=== PATIENT | male | born 1955 | race Caucasian/White ===

== ENCOUNTER 2021-08-17 17:11 | Emergency (ER) | payer OTHER ==
[~2021-08-17] VITALS: Ht 170.2 cm; Wt 61.2 kg
--- NOTE | 2021-08-17 18:00 | NUR ---
at bedside for assessment
--- NOTE | 2021-08-17 18:10 | NUR ---
Patient complaints of a anxiety and chest pain
[2021-08-17 18:15] LABS: HEMATOCRIT 40.1 % (36.7-47.1); MEAN CORPUSCULAR HEMOGLOBIN 27.7 uug (23.8-33.4); MEAN CORPUSCULAR VOLUME 83.3 fL (73.0-96.2); PLATELET COUNT (AUTO) 303 K/uL (152-348)
[2021-08-17 18:18] LABS: CREATININE 0.8 mg/dL (0.6-1.3); POTASSIUM 4.1 mmol/L (3.5-5.1)
[2021-08-17 18:24] LABS: BILIRUBIN,DIRECT 0.2 mg/dL (0.0-0.2); BILIRUBIN,TOTAL 0.7 mg/dL (0.2-1.0); TOTAL PROTEIN, SERUM 8.9 g/dL (6.4-8.2)
[2021-08-17] MEDS ORDERED: MORPHINE SULFATE 4 MG/1 ML DISP.SYRIN IV ONE (18:30)
[2021-08-17] MEDS ORDERED: ASPIRIN 325 MG TABLET PO ONE (18:30)
[2021-08-17] MEDS ORDERED: NITROGLYCERIN 0.4 MG/TAB BOTTLE SL ONE ×2 (18:30→18:38)
[2021-08-17] MEDS ORDERED: ASPIRIN 325 MG TABLET ONE (18:38)
[2021-08-17] MEDS ORDERED: MORPHINE SULFATE 4 MG/1 ML DISP.SYRIN ONE (18:38)
[2021-08-17] MEDS ORDERED: MELA3TAB41 PO (18:57)
[2021-08-17] MEDS ORDERED: [UNRECOGNIZED DRUG - OTHER] (18:57)
[2021-08-17] MEDS ORDERED: BISM262O PO (18:57)
[2021-08-17] MEDS ORDERED: MULT-594 PO (18:57)
[2021-08-17] MEDS ORDERED: ACET-2154 PO (18:57)
[2021-08-17] MEDS ORDERED: BUPR8TAB4 (18:57)
[2021-08-17] MEDS ORDERED: MAG355OR18 PO (18:57)
[2021-08-17] MEDS ORDERED: FEXO180T94 PO (18:57)
[2021-08-17] MEDS ORDERED: ONDA4TAB5 PO (18:57)
[2021-08-17] MEDS ORDERED: CHOL4PAC5 PO (18:57)
[2021-08-17] MEDS ORDERED: POTA10CA43 PO (18:57)
[2021-08-17] MEDS ORDERED: [UNRECOGNIZED DRUG - CODE] (18:57)
[2021-08-17] MEDS ORDERED: DICY20TA11 PO (18:57)
[2021-08-17] MEDS ORDERED: FURO40TA5 PO (18:57)
[2021-08-17] MEDS ORDERED: DOCU100T2 PO (18:57)
[2021-08-17] MEDS ORDERED: MAGN400O6 PO (18:57)
[2021-08-17] MEDS ORDERED: CARV3.122 PO (18:57)
[2021-08-17] MEDS ORDERED: NALO4SPR NS (18:57)
[2021-08-17] MEDS ORDERED: DEXT15SY3 PO (18:57)
[2021-08-17 19:35] LABS: *BILIRUBIN,URIN NEGATIVE (NEGATIVE); *BLOOD, URINE NEGATIVE (NEGATIVE); *CLARITY,URINE CLEAR (CLEAR); *COLOR,URINE YELLOW (YELLOW); *KETONES,URINE 3+ (NEGATIVE); *UROBILINOGEN,URINE 0.2 E.U./dl (NORMAL); LEUKOCYTE ESTERASE ,URINE NEGATIVE (NEGATIVE); NITRITE, URINE NEGATIVE (NEGATIVE); PH,URINE 5.5 (5.0-8.0); UGLUCOSE NEGATIVE (NEGATIVE)
[2021-08-17] MEDS ORDERED: IV NORMAL SALINE 250 ML IV ONE (19:40)
[2021-08-17] MEDS ORDERED: IOHEXOL 350 100 ML INFUS..BTL ONE (19:40)
[2021-08-17] MEDS ORDERED: SWABABLE VALVE TRANSFER SET EA MC ONE (19:40)
[2021-08-17 19:45] LABS: BACTERIA,URINE NONE SEEN /HPF (NONE SEEN); RBC,URINE 0-3 /HPF (0-3); WBC,URINE 0-3 /HPF (0-3)
[2021-08-17 19:46] LABS: SQUAMOUS EPITHELIAL CELL,UR MODERATE /HPF (NONE SEEN)
--- NOTE | 2021-08-17 19:55 | NUR ---
Pt refusing CTA chest.
[2021-08-17] MEDS ORDERED: LORAZEPAM 0.5 MG TABLET PO ONE (20:30)
[2021-08-17] MEDS ORDERED: LORAZEPAM 1 MG TABLET ONE (20:49)
--- NOTE | 2021-08-17 23:00 | NUR ---
IV removed. Catheter intact and site benign. Pressure and 4x4 gauze applied to site. No bleeding noted.
--- NOTE | 2021-08-17 23:00 | NUR ---
Patient discharged to [facility] in stable condition. Written and verbal after care instructions given. Patient verbalizes understanding of instructions. Stressed follow up or return to ER for worsening s/s.
[2021-08-17 23:19] VITALS: BP 145/82
== END 2021-08-17 23:20 ==
LOC: ER 17:11
DX: R07.9 Chest pain, unspecified (principal); I25.2 Old myocardial infarction; Z95.0 Presence of cardiac pacemaker; F11.20 Opioid dependence, uncomplicated; D72.829 Elevated white blood cell count, unspecified; R79.1 Abnormal coagulation profile; R00.0 Tachycardia, unspecified
CPT/HCPCS: 36415; 71045; 71275; 80048; 80076; 81001; 83690; 83880; 84484; 85025; 85379; 93005; 96374; 99285; J2270; Q9967; 70030-TC; A4663; J7050

== ENCOUNTER 2021-08-26 22:20 | Inpatient (IN) | payer OTHER ==
[~2021-08-26] VITALS: Ht 172.7 cm; Wt 68.0 kg
[~2021-08-26 22:20] MED LIST: ACET-2154 PO; BISM262O PO; BUPR8TAB4; CARV3.122 PO; CHOL4PAC5 PO; DEXT15SY3 PO; DICY20TA11 PO; DOCU100T2 PO; FEXO180T94 PO; FURO40TA5 PO; MAG355OR18 PO; MAGN400O6 PO; MELA3TAB41 PO; MULT-594 PO; NALO4SPR NS; ONDA4TAB5 PO; POTA10CA43 PO; [UNRECOGNIZED DRUG - CODE]; [UNRECOGNIZED DRUG - OTHER]
[2021-08-26] MEDS ORDERED: ASPIRIN 81 MG TAB.CHEW PO ONE ×2 (22:45→23:30)
[2021-08-26] MEDS ORDERED: CEFTRIAXONE 1 G in IV DEXTROSE 5% 50 ML IV ONE (22:45)
[2021-08-26] MEDS ORDERED: LORAZEPAM 2 MG/1 ML VIAL IV ONE (22:45)
--- NOTE | 2021-08-26 22:50 | NUR ---
Xray at bedside.
[2021-08-26] MEDS ORDERED: ASPI81TA31 PO (22:53)
[2021-08-26] MEDS ORDERED: BUPR1FIL3 SUBCUT/PO (22:53)
[2021-08-26] MEDS ORDERED: CARVEDILOL PO (22:53)
[2021-08-26] MEDS ORDERED: SERT50TA14 PO (22:54)
--- NOTE | 2021-08-26 22:54 | NUR ---
Patient is AOx4 but can not recall the exact dosages of his home medication.
[2021-08-26 22:55] LABS: HEMATOCRIT 36.8 % (36.7-47.1); MEAN CORPUSCULAR HEMOGLOBIN 27.9 uug (23.8-33.4); MEAN CORPUSCULAR VOLUME 85.6 fL (73.0-96.2); PLATELET COUNT (AUTO) 190 K/uL (152-348)
[2021-08-26] MEDS ORDERED: LORAZEPAM 2 MG/1 ML VIAL ONE (22:57)
[2021-08-26] MEDS ORDERED: ASPIRIN 81 MG TAB.CHEW ONE ×2 (22:58→23:47)
[2021-08-26 22:59] LABS: CREATININE 0.9 mg/dL (0.6-1.3); POTASSIUM 4.4 mmol/L (3.5-5.1)
[2021-08-26] MEDS ORDERED: CEFTRIAXONE /D5W 50ML IVPB **ER PYXIS IV ONE (22:59)
[2021-08-26 23:11] LABS: BILIRUBIN,DIRECT 0.1 mg/dL (0.0-0.2); BILIRUBIN,TOTAL 0.5 mg/dL (0.2-1.0); TOTAL PROTEIN, SERUM 7.4 g/dL (6.4-8.2)
[2021-08-26] MEDS ORDERED: levoFLOXacin 750 MG/D5W 150 ML PIGGYBACK IV ONE (23:30)
[2021-08-26] MEDS ORDERED: ENOXAPARIN SODIUM 60 MG/0.6 ML DISP.SYRIN SQ ONE ×2 (23:30→23:47)
[2021-08-26] MEDS ORDERED: NITROGLYCERIN OINT 1 GM PACKET TP ONE ×2 (23:30→23:47)
[2021-08-26] MEDS ORDERED: FUROSEMIDE 20 MG/2 ML VIAL IV ONE (23:30)
--- NOTE | 2021-08-26 23:31 | NUR ---
Ultrasound at bedside.
[2021-08-26] MEDS ORDERED: levoFLOXacin 750MG/D5W 150 ML IV ONE (23:47)
--- NOTE | 2021-08-26 23:47 | NUR ---
Dr. Mera speaking with Dr. Nova (laser beam machine operator).
[2021-08-27] MEDS ORDERED: IOHEXOL 350 100 ML INFUS..BTL ONE
[2021-08-27] MEDS ORDERED: SWABABLE VALVE TRANSFER SET EA MC ONE
[2021-08-27] MEDS ORDERED: IV NORMAL SALINE 250 ML IV ONE
[2021-08-27] MEDS ORDERED: FUROSEMIDE 20 MG/2 ML VIAL ONE (00:02)
--- NOTE | 2021-08-27 00:06 | NUR ---
Called [facility] to page Nacho Kapoor DNP.
--- NOTE | 2021-08-27 00:15 | NUR ---
Back from CT.
--- NOTE | 2021-08-27 00:18 | NUR ---
Pt back to ER from CT.
[2021-08-27 00:31] LABS: *BILIRUBIN,URIN NEGATIVE (NEGATIVE); *BLOOD, URINE NEGATIVE (NEGATIVE); *CLARITY,URINE CLEAR (CLEAR); *COLOR,URINE YELLOW (YELLOW); *KETONES,URINE NEGATIVE (NEGATIVE); *UROBILINOGEN,URINE 0.2 E.U./dl (NORMAL); LEUKOCYTE ESTERASE ,URINE NEGATIVE (NEGATIVE); NITRITE, URINE NEGATIVE (NEGATIVE); PH,URINE 5.5 (5.0-8.0); UGLUCOSE NEGATIVE (NEGATIVE)
--- NOTE | 2021-08-27 00:32 | NUR ---
Dr. Mera on panel call with Nacho Kapoor DNP.
[2021-08-27 00:37] LABS: *AMPHETAMINE, URINE NEGATIVE (NEGATIVE); *CANNABINOID, URINE NEGATIVE (NEGATIVE); *COCCAINE, URINE NEGATIVE (NEGATIVE); *OPIATE, URINE NEGATIVE (NEGATIVE); *PHENCYCLIDINE SCREEN,URINE NEGATIVE (NEGATIVE)
[2021-08-27] MEDS ORDERED: IV NORMAL SALINE 500 ML BAG IV ONE ×2 (02:15)
[2021-08-27 02:48] VITALS: BP 95/71
--- NOTE | 2021-08-27 02:55 | NUR ---
Pt. admitted to [facility], Room 306, under care of Dr. Kapoor. Belongs List completed.
[2021-08-27] MEDS ORDERED: ONDANSETRON 4 MG/2 ML VIAL IV PRN (06:45)
[2021-08-27] MEDS ORDERED: ACETAMINOPHEN 325 MG TABLET PO PRN (06:45)
[2021-08-27] MEDS ORDERED: LORAZEPAM 2 MG/1 ML VIAL IV PRN (06:45)
[2021-08-27] MEDS ORDERED: Z GUARD REMEDY PASTE 57 GM TUBE TOP PRN (06:45)
[2021-08-27] MEDS ORDERED: PANTOPRAZOLE SODIUM 40 MG TABLET.DR PO SCH (07:00)
[2021-08-27 07:07] VITALS: BP 105/74
[2021-08-27] MEDS ORDERED: BUMETANIDE INJ 6 MG in IV DEXTROSE 5% 36 ML IV ONE (08:00)
[2021-08-27] MEDS ORDERED: CARVEDILOL 3.125 MG TABLET PO SCH (08:00)
[2021-08-27] MEDS ORDERED: ASPIRIN 81 MG TAB.CHEW PO SCH (09:00)
--- NOTE | 2021-08-27 09:31 | NUR ---
Received pt. AAOX4. vitals stable no c/of pain at this time. Hemodynamically stable. IV line patent. Skin with multiple skin sores and blisters bilateral to lower extremities. Will continue to monitor.
[2021-08-27] MEDS ORDERED: MAGNESIUM HYDROXIDE 30 ML LIQUID UDC PO PRN (11:15)
[2021-08-27 11:42] VITALS: BP 110/72
--- NOTE | 2021-08-27 13:49 | NUR ---
Patient requesting our DrHarris to continue with his rehabilitation medications Buprenorphine 8mg/2mg 4 times a day as stated by him. Attending called and notified orders to verify prescription with provider and pharmacy received. Or to have medication brought by family.
--- NOTE | 2021-08-27 14:15 | NUR ---
A call to pharmacies [facility] in [place] and [facility]. and both denied ever supplying pt's prescriptions. This pharmacies numbers provided by pt. himself.
--- NOTE | 2021-08-27 14:19 | NUR ---
Patient requesting to be dcd and as stated "unless DrHarris has a valid reason to keep me in the hospital". Attending informed. When patient was informed of the need to have a family member to bring him buprenorphine pt. stated "I run out of it". He was informed that both pharmacies of which He provided contact information were called and both denied supplying his buprenorphine. At this time He stated "I want to be discharge so I can go back to my rehab place and get my medications there" Attending informed.
--- NOTE | 2021-08-27 14:53 | NUR ---
A call to [facility] at message left to Manda Pimentel facility director message left informing them that one of their pt. will be dcd back to them call back number left. no PHI disclosed just message to call back left.
--- NOTE | 2021-08-27 14:57 | NUR ---
Patient provided me with Wood's number one of the two director at this place . message with call back number left no PHI disclosed.
--- NOTE | 2021-08-27 15:04 | NUR ---
After multiple attempts and [facility] in [facility] and calls to [facility] community development officer informed an a call to CM to continue arranging proper dcd. request to have dope maintenance worker handle the case. Awaiting family welfare social work professor.
--- NOTE | 2021-08-27 15:46 | NUR ---
As per care plan discussed with vocational case manager Clair and Director pt. can drive himself back [facility] himself, this because call and messages left to Wood not returned. As per pt. He can drive himself back to this place. and I was just informed by community relations director that Wood spoke with case-manger and is aware and actually waiting for pt. to check himself back in his place.
--- NOTE | 2021-08-27 15:57 | NUR ---
Clinical Social Work Note Social work consult was requested for substance use. Patient is alert and oriented x4. Patient presents with a blunted affect. field worker was able to discuss with patient about his substance use. Patient shared that 2 years ago he was prescribed [place] for pain after his heart attack. Patient stated that the instruction was to take 3 per day, but he became addicted and began to take 4 a day. Patient stated that he would take the medication daily. Patient stated that he has been receiving rehabilitation services at [facility] at [address] [place], [place] [id number] and he would be returning there upon discharge. Patient was provided with a brief substance abuse intervention and referred to the following substance abuse programs: [facility] ([phone]); [facility] [address] [place] [id number] ([phone]); [address] [address] ([phone]); [facility] ([phone]); [facility] ([phone]); [facility] ([phone]); [facility] ([phone]). Patient spoke with php programmer (Wood) at [address] [address] , who confirmed patient can return today. [facility]
[2021-08-27 16:00] VITALS: BP 110/78
--- NOTE | 2021-08-27 16:06 | NUR ---
Patient taken down via wheel-chair and He will drive his private car located at [employer] parking lot. Patient left AAO4. vital stable no c/of pain all belonging returned. Instructed to follow up with his PCP. Patient with steady gait. Taken down by Cristina roberts staff.
[2021-08-27] MEDS ORDERED: ENOXAPARIN SODIUM 40 MG/0.4 ML DISP.SYRIN SQ SCH (21:00)
[2021-08-27] MEDS ORDERED: DOCUSATE SODIUM 250 MG CAPSULE PO SCH (21:00)
== END 2021-08-27 16:30 | disposition home or self-care (01) | DRG 281 ==
LOC: ER 22:24 → TELE-TD3 08-27 02:14
PROVIDERS: ADMIT Internal Medicine; ATTEND Internal Medicine
DX: I50.21 Acute systolic (congestive) heart failure (principal); I21.A1 Myocardial infarction type 2; I25.2 Old myocardial infarction; Z95.1 Presence of aortocoronary bypass graft; I25.5 Ischemic cardiomyopathy; Z79.82 Long term (current) use of aspirin; I25.10 Atherosclerotic heart disease of native coronary artery without angina pectoris; Z95.810 Presence of automatic (implantable) cardiac defibrillator; F41.9 Anxiety disorder, unspecified; R23.8 Other skin changes; L08.9 Local infection of the skin and subcutaneous tissue, unspecified; Z20.822 Contact with and (suspected) exposure to COVID-19; F19.20 Other psychoactive substance dependence, uncomplicated
CPT/HCPCS: 36415; 70030-TC; 71045; 71275; 85025; 85730; 87040; 93005; A4663; G0378; J0696; J1650; J1940; J1956; J2060; J3490; J7040; J7050; J7060; Q9967

== ENCOUNTER 2021-09-07 00:43 | Emergency (ER) | payer OTHER ==
[~2021-09-07] VITALS: Ht 170.2 cm; Wt 63.5 kg
[~2021-09-07 00:43] MED LIST changes: +ASPI81TA31 PO; +BUPR1FIL3 SUBCUT/PO; +CARVEDILOL PO; -CHOL4PAC5 PO; -DEXT15SY3 PO; +SERT50TA14 PO
--- NOTE | 2021-09-07 01:12 | NUR ---
PT AMBULATED TO ER WITH STEADY GAIT, C/O SOB AND CP THAT STARTED 2 DAYS AGO. A/O X3, DENIES N/V/D. CLEAR SPEECH, COMPLETE SENTENCES. HAND COMMODITY BROKER EQUAL. ABLE TO MOVE ALL EXTREMITIES WITHOUT DEFICIT.
--- NOTE | 2021-09-07 01:14 | NUR ---
DR. MENJIVAR AT BEDSIDE, MSE IN PROGRESS.
[2021-09-07] MEDS ORDERED: ASPIRIN 325 MG TABLET PO ONE (01:15)
[2021-09-07] MEDS ORDERED: ASPIRIN 325 MG TABLET ONE (01:26)
[2021-09-07 01:50] LABS: BILIRUBIN,DIRECT 0.3 mg/dL (0.0-0.2); BILIRUBIN,TOTAL 0.9 mg/dL (0.2-1.0); POTASSIUM 3.9 mmol/L (3.5-5.1); TOTAL PROTEIN, SERUM 8.3 g/dL (6.4-8.2)
[2021-09-07] MEDS ORDERED: LORAZEPAM 2 MG/1 ML VIAL IV ONE (02:00)
[2021-09-07 02:11] LABS: HEMATOCRIT 39.5 % (36.7-47.1); MEAN CORPUSCULAR HEMOGLOBIN 28.2 uug (23.8-33.4); MEAN CORPUSCULAR VOLUME 83.9 fL (73.0-96.2); PLATELET COUNT (AUTO) 268 K/uL (152-348)
[2021-09-07] MEDS ORDERED: CEFTRIAXONE 1 G in IV DEXTROSE 5% 50 ML IV ONE (02:30)
[2021-09-07] MEDS ORDERED: AZITHROMYCIN 250 MG TABLET PO ONE (02:30)
[2021-09-07] MEDS ORDERED: AZITHROMYCIN 250 MG TABLET ONE (02:48)
[2021-09-07] MEDS ORDERED: CEFTRIAXONE 1 G VIAL ONE (02:49)
[2021-09-07] MEDS ORDERED: LORAZEPAM 2 MG/1 ML VIAL ONE (02:55)
--- NOTE | 2021-09-07 03:55 | NUR ---
PT IN BED RESTING COMFORTABLY, EYES CLOSED.
--- NOTE | 2021-09-07 05:26 | NUR ---
Patient is resting comfortably in bed with eyes closed.
--- NOTE | 2021-09-07 07:01 | NUR ---
GAVE REPORT TO ELGIN KAUR. PT NOTED TO BE IN BED, COMFORTABLE, VITALS STABLE.
--- NOTE | 2021-09-07 07:01 | NUR ---
GAVE REPORT TO ELGIN KAUR. PT NOTED TO BE IN BED, COMFORTABLE, VITALS STABLE.
--- NOTE | 2021-09-07 07:42 | NUR ---
PT DECIDED TO LEAVE AMA. DR MENJIVAR TALKED TO THE PT AND EXPLAINED ALL RISKS OF LEAVING AMA TO THE PT. PT VERBALISED FULL UNDERSTANDING. PT SIGNED AMA FORM AND LEFT HOSPITAL BY [facility]AXI. NO S/S OF DISTRESS. GAIT IS STABLE. NO SOB, NO N/V, PT DENIES PAIN AND DIZZINESS.
[2021-09-07 07:45] VITALS: BP 136/78
== END 2021-09-07 07:46 | disposition left against medical advice (07) ==
LOC: ER 00:47
DX: R06.00 Dyspnea, unspecified (principal); R07.9 Chest pain, unspecified; Z20.822 Contact with and (suspected) exposure to COVID-19; Z79.82 Long term (current) use of aspirin; Z79.899 Other long term (current) drug therapy; I25.10 Atherosclerotic heart disease of native coronary artery without angina pectoris; Z95.1 Presence of aortocoronary bypass graft; Z95.0 Presence of cardiac pacemaker; I25.2 Old myocardial infarction; E78.00 Pure hypercholesterolemia, unspecified; F11.20 Opioid dependence, uncomplicated
CPT/HCPCS: 36415; 71045; 80048; 80076; 83880; 84484; 85025; 85379; 87426; 93005; 93970; 96365; 96375; 99285; J0696; J2060; 70030-TC; A4663; Q0144

== ENCOUNTER 2021-10-01 11:20 | Emergency (ER) | payer OTHER ==
[~2021-10-01] VITALS: Ht 170.2 cm; Wt 63.5 kg
[~2021-10-01 11:20] MED LIST changes: -ACET-2154 PO; -BISM262O PO; -BUPR8TAB4; -CARVEDILOL PO; -DICY20TA11 PO; -DOCU100T2 PO; -MAG355OR18 PO; -MAGN400O6 PO; -NALO4SPR NS; -ONDA4TAB5 PO; -SERT50TA14 PO; -[UNRECOGNIZED DRUG - CODE]; -[UNRECOGNIZED DRUG - OTHER]
[2021-10-01] MEDS ORDERED: LORAZEPAM 0.5 MG TABLET PO ONE ×2 (12:00→15:00)
[2021-10-01 12:09] LABS: HEMATOCRIT 38.6 % (36.7-47.1); MEAN CORPUSCULAR VOLUME 83.8 fL (73.0-96.2); PLATELET COUNT (AUTO) 213 K/uL (152-348)
[2021-10-01] MEDS ORDERED: LORAZEPAM 0.5 MG TABLET ONE ×2 (12:12→14:59)
[2021-10-01 12:16] LABS: CARBON DIOXIDE 29 mmol/L (21-32); CHLORIDE 102 mmol/L (98-107); CREATININE 0.5 mg/dL (0.6-1.3); GLUCOSE 103 mg/dL (74-106); POTASSIUM 4.1 mmol/L (3.5-5.1); UREA NITROGEN, BLOOD 22 mg/dL (7-18)
--- NOTE | 2021-10-01 12:35 | NUR ---
LUNCH TRAY PROVIDED FOR PT PER REQUEST.
[2021-10-01] MEDS ORDERED: LORA-259 PO (14:54)
[2021-10-01 14:56] VITALS: BP 129/71
--- NOTE | 2021-10-01 14:56 | NUR ---
Patient discharged to home in stable condition. Written and verbal after care instructions given. Patient verbalizes understanding of instructions. Stressed follow up or return to ER for worsening s/s.PT WALKS IN STEADY GAIT.
== END 2021-10-01 15:04 | disposition home or self-care (01) ==
LOC: ER 11:20
DX: F41.9 Anxiety disorder, unspecified (principal); R06.00 Dyspnea, unspecified; I45.10 Unspecified right bundle-branch block; Z95.1 Presence of aortocoronary bypass graft; F11.20 Opioid dependence, uncomplicated; I25.2 Old myocardial infarction; I25.10 Atherosclerotic heart disease of native coronary artery without angina pectoris; Z79.82 Long term (current) use of aspirin; R94.31 Abnormal electrocardiogram [ECG] [EKG]; Z95.810 Presence of automatic (implantable) cardiac defibrillator; I50.9 Heart failure, unspecified; E78.00 Pure hypercholesterolemia, unspecified; R03.0 Elevated blood-pressure reading, without diagnosis of hypertension
CPT/HCPCS: 36415; 70030-TC; 71045; 85025; 93005; A4663